=== PATIENT | male | born 1960 | race Caucasian/White ===

== ENCOUNTER 2023-02-20 01:49 | Emergency (ER) | payer OTHER ==
[~2023-02-20] VITALS: Ht 185.4 cm; Wt 79.4 kg
--- NOTE | 2023-02-20 04:10 | NUR ---
Patient discharged to home in stable condition. Written and verbal after care instructions given. Patient verbalizes understanding of instruction.
[2023-02-20 04:11] VITALS: BP 132/86
== END 2023-02-20 04:11 | disposition home or self-care (01) ==
LOC: ER 01:49
DX: S80.11XA Contusion of right lower leg, initial encounter (principal); M79.89 Other specified soft tissue disorders; W22.8XXA Striking against or struck by other objects, initial encounter; Y93.89 Activity, other specified; Y92.89 Other specified places as the place of occurrence of the external cause; Y99.8 Other external cause status
CPT/HCPCS: 93971-TC